=== PATIENT | male | born 1965 | race Caucasian/White ===

== ENCOUNTER 2018-04-02 01:53 | Inpatient (IN) | payer OTHER ==
[~2018-04-02] VITALS: Ht 193 cm; Wt 141.2 kg
[2018-04-02] VITALS (8 sets, daily range): BP systolic 108–132; BP diastolic 64–87; PULSE 63–78; TEMP 36.3–36.8; O2SAT 94–97; Ht 193 cm; Wt 141.2 kg
[2018-04-02] MEDS ORDERED: NITROGLYCERIN 2% OINTMENT 30GM TUBE EXT ONE (02:15)
--- NOTE | 2018-04-02 02:26 | EMERGENCY ROOM VISIT NOTE ---
History Report prepared by Kedar: Edi Lainez Under the Supervision of: Dr. Anna Marie Joel D.O. First contact with patient: 01:54 Chief Complaint: CHEST PAIN Stated Complaint: CHEST PAIN History of Present Illness The patient is a 52 year old female who presents to the Emergency Room with complaints of waxing and waning chest tightness beginning this evening around 1130PM. He currently rates his discomfort a 2/10 in severity. The patient states he was doing a fair amount of lifting, walking, and physical labor when his symptoms began. He reports he was driving and had to lung puller because his symptoms were worsening and call an ambulance. The patient notes his symptoms were better while he waited, but there was still some heaviness and tightness. He states his symptoms worsened again in the ambulance. The patient reports he was given two nitroglycerin and 4 baby aspirin in route, and his discomfort decreased to a 2/10. He notes his symptoms also radiated to his shoulder in the ambulance. The patient states he had an episode of sudden nausea, sweating, and shortness of breath in the ambulance as well. He reports he had similar chest discomfort last week and went to the ED. The patient notes he had an EKG, CT, and x-ray that were all normal. He states he has a stress test scheduled. He notes he has had pain with breathing for the past three months. The patient denies having a heart catheterization. He reports a severe family history of cardiac disease in the 40s. The patient notes his last cardiac stress test was 5 years ago. He states he takes Lisinopril for hypertension. The patient reports he has gained 45lbs since May. He also notes a history of sleep apnea and hypertriglyceridemia. He denies a cough. Source of History: patient Onset: this evening around 1130PM Position: chest Symptom Intensity: 2/10 Quality: other (tightness) Timing: waxes/wanes Modifying Factors (Relieving): other (nitroglycerin and aspirin) Associated Symptoms: + SOB, + nausea, No cough Note: Associated symptoms: pain with breathing for three months, sweating, shoulder pain Review of Systems See HPI for pertinent positives & negatives. A total of 10 systems reviewed and were otherwise negative. Past Medical & Surgical Medical Problems: (1) Chest pain (2) HTN (hypertension) (3) Hypertriglyceridemia Family History FH: cardiovascular disease Social History Marital Status: Housing Status: lives with family Occupation Status: employed Current/Historical Medications Scheduled Aspirin (Aspirin Ec), 81 MG PO DAILY Beclomethasone Dip (Qvar), 2 PUFFS PO BID Fenofibrate (Tricor ), 145 MG PO DAILY Lisinopril/Hctz (Zestoretic 20MG/25MG), 1 TAB PO DAILY Trrwv-7-Ypoy Ethyl Esters (Nesbit-3), 1,000 MG PO BID Omeprazole (Prilosec), 40 MG PO BID Rosuvastatin Calcium (Crestor), 20 MG PO DAILY Allergies Coded Allergies: No Known Allergies (Unverified , 04/02/18) Physical Exam Vital Signs Date Time Temp Pulse Resp B/P (MAP) Pulse Ox O2 Delivery O2 Flow Rate FiO2 04/02/18 05:05 78 14 04/02/18 04:35 75 17 94 Room Air 04/02/18 04:33 106/66 04/02/18 04:00 71 20 106/73 94 Room Air 04/02/18 02:09 96 Room Air 04/02/18 02:04 84 04/02/18 01:59 36.8 82 18 114/80 96 Room Air 04/02/18 01:59 Room Air Physical Exam HEENT: Head - normocephalic and atraumatic Pupils are equal, round, and reactive to light. Extraocular eye muscles are intact, and sclera are anicteric. Nose - moist nasal mucosa without discharge. Mouth - moist buccal mucosa. Oropharynx is nonerythematous and there is no tonsillar exudate or edema noted. Neck: Supple; no JVD, nuchal rigidity, cervical lymphadenopathy, or auscultated bruits. Heart: Regular rate and rhythm. There is a normal S1 and S2 with no murmurs, clicks, or gallops appreciated. Lungs: Clear to auscultation bilaterally with no wheezes, rales, or rhonchi. Abdomen: Soft, completely nontender, nondistended, with good bowel sounds. There are no palpable pulsatile masses or hepatosplenomegaly. There is no guarding, rigidity, or rebound noted. Extremities: No evidence of cyanosis, clubbing, or edema. There are easily palpable peripheral pulses. Skin: warm and dry with good turgor and no rashes. Diaphoretic. Medical Decision & Procedures ER Provider Diagnostic Interpretation: Radiology results as stated below per my review: CHEST X-RAY: Narrow mediastinum, no pulmonary infiltrates or pleural effusions. Laboratory Results 04/02/18 02:35 Red Blood Count 5.07, Mean Corpuscular Volume 86.0, Mean Corpuscular Hemoglobin 29.0, Mean Corpuscular Hemoglobin Concent 33.7, Mean Platelet Volume 9.7, Neutrophils (%) (Auto) 68.8, Lymphocytes (%) (Auto) 21.6, Monocytes (%) (Auto) 8.1, Eosinophils (%) (Auto) 0.6, Basophils (%) (Auto) 0.3, Neutrophils # (Auto) 7.29, Lymphocytes # (Auto) 2.29, Monocytes # (Auto) 0.86, Eosinophils # (Auto) 0.06, Basophils # (Auto) 0.03 04/02/18 02:35 Test 04/02/18 02:35 White Blood Count 10.59 K/uL (4.8-10.8) Red Blood Count 5.07 M/uL (4.7-6.1) Hemoglobin 14.7 g/dL (14.0-18.0) Hematocrit 43.6 % (42-52) Mean Corpuscular Volume 86.0 fL (80-100) Mean Corpuscular Hemoglobin 29.0 pg (25-34) Mean Corpuscular Hemoglobin Concent 33.7 g/dl (32-36) Platelet Count 281 K/uL (130-400) Mean Platelet Volume 9.7 fL (7.4-10.4) Neutrophils (%) (Auto) 68.8 % Lymphocytes (%) (Auto) 21.6 % Monocytes (%) (Auto) 8.1 % Eosinophils (%) (Auto) 0.6 % Basophils (%) (Auto) 0.3 % Neutrophils # (Auto) 7.29 K/uL (1.4-6.5) Lymphocytes # (Auto) 2.29 K/uL (1.2-3.4) Monocytes # (Auto) 0.86 K/uL (0.11-0.59) Eosinophils # (Auto) 0.06 K/uL (0-0.5) Basophils # (Auto) 0.03 K/uL (0-0.2) RDW Standard Deviation 40.9 fL (36.4-46.3) RDW Coefficient of Variation 13.2 % (11.5-14.5) Immature Granulocyte % (Auto) 0.6 % Immature Granulocyte # (Auto) 0.06 K/uL (0.00-0.02) Prothrombin Time 11.2 SECONDS (9.0-12.0) Prothromb Time International Ratio 1.1 (0.9-1.1) Anion Gap 10.0 mmol/L (3-11) Est Creatinine Clear Calc Drug Dose 86.3 ml/min Estimated GFR () 64.3 Estimated GFR (Non- 55.5 BUN/Creatinine Ratio 17.9 (10-20) Calcium Level 9.1 mg/dl (8.5-10.1) Magnesium Level 1.8 mg/dl (1.8-2.4) Total Bilirubin 0.6 mg/dl (0.2-1) Direct Bilirubin 0.2 mg/dl (0-0.2) Aspartate Amino Transf (AST/SGOT) 50 U/L (15-37) Alanine Aminotransferase (ALT/SGPT) 103 U/L (12-78) Alkaline Phosphatase 33 U/L (45-117) Total Protein 7.4 gm/dl (6.4-8.2) Albumin 4.2 gm/dl (3.4-5.0) Triglycerides Level 177 mg/dl (0-150) Cholesterol Level 146 mg/dl (0-200) HDL Cholesterol 26 mg/dl LDL Cholesterol, Calculated 85 mg/dl VLDL Cholesterol, Calculated 35 mg/dl Cholesterol/HDL Ratio 5.6 Laboratory results per my review. Medications Administered Medications (Trade) Dose Ordered Sig/Anders Route Start Time Stop Time Status Last Admin Dose Admin Nitroglycerin (Nitroglycerin 2% Oint) 1 inch NOW ONCE EXT 04/02/18 02:15 04/02/18 02:16 DC 04/02/18 02:21 1 INCH Acetaminophen (Tylenol Tab) 650 mg Q4H PRN PO 04/02/18 05:15 05/02/18 05:14 04/02/18 06:39 650 MG Morphine Sulfate (MoRPHine SULFATE INJ) 2 mg Q30M PRN IV 04/02/18 05:15 04/16/18 05:14 04/02/18 11:50 2 MG Procedure Medications Ordered: Nitroglycerin, Fentanyl Citrate. ECG Per My Interpretation Indication: chest pain Rate (beats per minute): 83 Rhythm: normal sinus Findings: no acute ischemic change, no ectopy, other (No ST segment changes. ) ED Course 0157: Past medical records reviewed. The patient was evaluated in room C8. A complete history and physical exam was performed. The patient was observed on the salesperson yard goods and pulse oximeter. Laboratory studies were drawn as above. A 12-lead EKG was performed as described above. The patient had a portable chest x-ray. 0215: Ordered Nitroglycerin 1 inch EXT. his blood pressure remained stable with this. His chest discomfort was relieved 0421: I checked on the patient. His chest heaviness is currently rated at 3/10 in severity. 0425: Ordered Fentanyl 100 mcg IV. 0511: I discussed the case with Dr. Miriam BENÍTEZ Hospitalist. He will evaluate the patient for further treatment. Medical Decision The patient is a 52 year old male who presents to the Emergency Department with waxing/waning chest pain. Differential diagnosis includes pleurisy, costochondritis, STEMI, ACS. Laboratory results were reviewed and show; negative troponin, mildly elevated AST and ALT, BUN of 26, creatinine 1.4, glucose 100, normal coagulations, no leukocytosis, and stable hemoglobin and hematocrit. This is a 52-year-old obese male patient who presents to the emergency department with escalating symptoms of exertional shortness of breath and exertional chest discomfort that are concerning for unstable angina. EKG and cardiac enzymes are unremarkable at this time. The patient had received nitroglycerin and aspirin in the field and his discomfort was relieved temporarily. The patient is from out of town. He is scheduled for cardiac stress test at home but I am concerned for his escalating symptoms and feel he would require cardiac catheterization giving his strong family history of coronary artery disease at a young age, hypertriglyceridemia, and sleep apnea. I discussed the case with the [facility] Hospitalist and they will evaluate for further management. Medication Reconcilliation Current Medication List: was personally reviewed by me Blood Pressure Screening Patient's blood pressure: Normal blood pressure Blood pressure disposition: Did not require urgent referral Consults Time Called: [phone] Consulting Physician: Dr. Miriam BENÍTEZ [facility]. Returned Call: [phone] I discussed the case with Dr. Pasquariello - [facility] Hospitalist. He will evaluate the patient for further treatment. Impression Primary Impression: Substernal chest pain Scribe Attestation The scribe's documentation has been prepared under my direction and personally reviewed by me in its entirety. I confirm that the note above accurately reflects all work, treatment, procedures, and medical decision making performed by me. Departure Information Dispostion Being Evaluated By Hospitalist Patient Instructions My [facility]
[2018-04-02] MEDS ORDERED: ROSU20TA PO (02:48)
[2018-04-02] MEDS ORDERED: LISI-788 PO (02:48)
[2018-04-02] MEDS ORDERED: OMEP40CA41 PO (02:48)
[2018-04-02] MEDS ORDERED: FENO145T26 PO (02:48)
[2018-04-02] MEDS ORDERED: ASPI81TA28 PO (02:48)
[2018-04-02 02:51] LABS: BASO % 0.3 %; BASO ABS # 0.03 K/uL (0-0.2); EOS % 0.6 %; EOS ABS # 0.06 K/uL (0-0.5); HEMATOCRIT 43.6 % (42-52); HEMOGLOBIN 14.7 g/dL (14.0-18.0); IG# 0.06 K/uL (0.00-0.02); LYMPH % 21.6 %; LYMPH ABS # 2.29 K/uL (1.2-3.4); MEAN CORPUSCULAR HGB CONC 33.7 g/dl (32-36); MEAN PLATELET VOLUME 9.7 fL (7.4-10.4); MONO % 8.1 %; MONO ABS # 0.86 K/uL (0.11-0.59); NEUT % 68.8 %; NEUT ABS # 7.29 K/uL (1.4-6.5); PLATELET COUNT 281 K/uL (130-400); RED CELL DISTRIBUTION WIDTH CV 13.2 % (11.5-14.5); RED CELL DISTRIBUTION WIDTH SD 40.9 fL (36.4-46.3); WHITE BLOOD COUNT 10.59 K/uL (4.8-10.8)
[2018-04-02] MEDS ORDERED: BECL80AE7 PO (02:51)
[2018-04-02] MEDS ORDERED: OMEG-112 PO (02:52)
[2018-04-02 03:00] LABS: INR 1.1 (0.9-1.1); PTT PATIENT 24.6 SECONDS (21.0-31.0)
[2018-04-02 03:15] LABS: ALBUMIN 4.2 gm/dl (3.4-5.0); ALKALINE PHOSPHATASE 33 U/L (45-117); ALT/SGPT 103 U/L (12-78); AST/SGOT 50 U/L (15-37); BLOOD UREA NITROGEN 26 mg/dl (7-18); CALCIUM 9.1 mg/dl (8.5-10.1); CARBON DIOXIDE 23 mmol/L (21-32); CREATININE 1.43 mg/dl (0.60-1.40); GLUCOSE 100 mg/dl (70-99); POTASSIUM 3.2 mmol/L (3.5-5.1); SODIUM 138 mmol/L (136-145); TOTAL PROTEIN 7.4 gm/dl (6.4-8.2)
[2018-04-02] MEDS: FENTANYL CITRATE INJ 50 MCG/1 ML 2 ML VIAL IV STA ×2 (04:25→04:34)
[2018-04-02] MEDS ORDERED: ONDANSETRON INJ 2 MG/ML 2 ML VIAL IV PRN (05:15)
[2018-04-02] MEDS ORDERED: NITROGLYCERIN 0.4 MG SL PER TAB CHARGE SL PRN (05:15)
[2018-04-02] MEDS ORDERED: ALUMINUM/MAGNESIUM/SIMETH (MAALOX MAX) 30 ML UDC PO PRN (05:15)
[2018-04-02] MEDS ORDERED: MAGNESIUM HYDROXIDE SUSP 30 ML UDC PO PRN (05:15)
[2018-04-02] MEDS ORDERED: POTASSIUM CHLORIDE 10 MEQ TABCR PO STA (05:20)
[2018-04-02] MEDS: SODIUM CHLORIDE 0.9% 1000ML 1,000 ML IV SCH ×3 (05:32→18:18)
--- NOTE | 2018-04-02 05:39 | History and Physical ---
History & Physical Date & Time of Service: Apr 02, 2018 at 05:23 Chief Complaint: Chest Pain Primary Care Physician: No Doctor, Assigned History of Present Illness Source: patient The patient is a 52 year old male with a PMH of hypertriglyceridemia, sleep apnea, and hypertension that has presented to [facility] due to chest pain. His chest pain began at approximately 1130pm. He was on his way home from the [facility] and was driving home when he had to machine assembler for puller over due to worsening symptoms of chest pain. He describes the pain as a tightness and heaviness in his chest. His pain did radiate to his left shoulder. He has associated nausea, sweating and shortness of breath. He was given two nitroglycerin and 4 baby aspirin in the ambulance. This helped to relieve his chest pain down to a 10. He notes that he has been having ongoing symptoms with intermittent chest tightness for the past 3 months that has been getting progressively worse. He had similar chest discomfort last week at which point he went to a ED and had a normal EKG, CT and CXR. He notes he has a stress test ordered as an outpatient. He reports a severe family history of cardiac disease in his 40's. He reports he has gained 45 pounds since May. Past Medical/Surgical History Medical Problems: (1) Chest pain (2) HTN (hypertension) (3) Hypertriglyceridemia Family History FH: cardiovascular disease Social History Smoking Status: Never Smoker Smokeless Tobacco Use: No Alcohol Use: none Drug Use: none Marital Status: Occupational Status: employed Immunizations History of Influenza Vaccine: Unknown History of Tetanus Vaccine?: Unknown History of Pneumococcal: Unknown History of Hepatitis B Vaccine: Unknown Allergies Coded Allergies: No Known Allergies (Unverified , 04/02/18) Home Medications Scheduled Aspirin (Aspirin Ec), 81 MG PO DAILY Beclomethasone Dip (Qvar), 2 PUFFS PO BID Fenofibrate (Tricor ), 145 MG PO DAILY Lisinopril/Hctz (Zestoretic 20MG/25MG), 1 TAB PO DAILY Jqnbs-4-Cctk Ethyl Esters (Mccoll-3), 1,000 MG PO BID Omeprazole (Prilosec), 40 MG PO BID Rosuvastatin Calcium (Crestor), 20 MG PO DAILY Review of Systems 10 systems reviewed and negative except as noted in the HPI Physical Exam Vital Signs Date Time Temp Pulse Resp B/P (MAP) Pulse Ox O2 Delivery O2 Flow Rate FiO2 04/02/18 05:05 78 14 04/02/18 04:35 75 17 94 Room Air 04/02/18 04:33 106/66 04/02/18 04:00 71 20 106/73 94 Room Air 04/02/18 02:09 96 Room Air 04/02/18 02:04 84 04/02/18 01:59 36.8 82 18 114/80 96 Room Air 04/02/18 01:59 Room Air General Appearance: WD/WN, no apparent distress, + obese Eyes: normal inspection, PERRL, EOMI ENT: hearing grossly normal, pharynx normal Neck: supple, no adenopathy, no JVD, no carotid bruits, trachea midline Respiratory/Chest: lungs clear, no respiratory distress, no accessory muscle use Cardiovascular: regular rate, rhythm, no edema, no murmur, normal peripheral pulses Abdomen/GI: normal bowel sounds, non tender, soft Extremities/Musculoskelatal: normal inspection, no calf tenderness, no pedal edema, non-tender Neurologic/Psych: alert, normal mood/affect, oriented x 3 Skin: normal color, warm/dry, no rash Diagnostics Laboratory Results Results Past 24 Hours Test 04/02/18 02:35 04/02/18 05:18 04/02/18 05:21 Range/Units White Blood Count 10.59 4.8-10.8 K/uL Red Blood Count 5.07 4.7-6.1 M/uL Hemoglobin 14.7 14.0-18.0 g/dL Hematocrit 43.6 42-52 % Mean Corpuscular Volume 86.0 80-100 fL Mean Corpuscular Hemoglobin 29.0 25-34 pg Mean Corpuscular Hemoglobin Concent 33.7 32-36 g/dl Platelet Count 281 130-400 K/uL Mean Platelet Volume 9.7 7.4-10.4 fL Neutrophils (%) (Auto) 68.8 % Lymphocytes (%) (Auto) 21.6 % Monocytes (%) (Auto) 8.1 % Eosinophils (%) (Auto) 0.6 % Basophils (%) (Auto) 0.3 % Neutrophils # (Auto) 7.29 1.4-6.5 K/uL Lymphocytes # (Auto) 2.29 1.2-3.4 K/uL Monocytes # (Auto) 0.86 0.11-0.59 K/uL Eosinophils # (Auto) 0.06 0-0.5 K/uL Basophils # (Auto) 0.03 0-0.2 K/uL RDW Standard Deviation 40.9 36.4-46.3 fL RDW Coefficient of Variation 13.2 11.5-14.5 % Immature Granulocyte % (Auto) 0.6 % Immature Granulocyte # (Auto) 0.06 0.00-0.02 K/uL Prothrombin Time 11.2 9.0-12.0 SECONDS Prothromb Time International Ratio 1.1 0.9-1.1 Activated Partial Thromboplast Time 24.6 21.0-31.0 SECONDS Partial Thromboplastin Ratio 0.9 Sodium Level 138 136-145 mmol/L Potassium Level 3.2 3.5-5.1 mmol/L Chloride Level 105 98-107 mmol/L Carbon Dioxide Level 23 21-32 mmol/L Anion Gap 10.0 3-11 mmol/L Blood Urea Nitrogen 26 7-18 mg/dl Creatinine 1.43 0.60-1.40 mg/dl Est Creatinine Clear Calc Drug Dose 86.3 ml/min Estimated GFR () 64.3 Estimated GFR (Non- 55.5 BUN/Creatinine Ratio 17.9 10-20 Random Glucose 100 70-99 mg/dl Calcium Level 9.1 8.5-10.1 mg/dl Total Bilirubin 0.6 0.2-1 mg/dl Direct Bilirubin 0.2 0-0.2 mg/dl Aspartate Amino Transf (AST/SGOT) 50 15-37 U/L Alanine Aminotransferase (ALT/SGPT) 103 12-78 U/L Alkaline Phosphatase 33 45-117 U/L Troponin I < 0.015 0-0.045 ng/ml Total Protein 7.4 6.4-8.2 gm/dl Albumin 4.2 3.4-5.0 gm/dl EKG Normal sinus rhythm w/ left axis deviation Impression Assessment and Plan The patient is a 52 year old male with a PMH of hypertriglyceridemia, sleep apnea, and hypertension that has presented to [facility] due to chest pain. Patient with a very significant family history of cardiac disease. Will need cardiology input to decide if patient needs cath today versus get cath closer to home in [place]. Unstable angina - trend troponins - order echo - order lipids, HbA1c - admit to telemetry - 81mg of aspirin daily - cardiology consult DANDY secondary to dehydration - NS at 150 mls/hr - monitor I/O's Hypokalemia - replete with 40meq of oral potassium - EKG w/ chest pain HTN - blood pressure well controlled currently - hold HCTZ/lisinopril Elevated liver enzymes - likely secondary to fatty liver disease - will need outpatient US Hypertriglyceridemia - hold fenofibrate and statin DVT - scd's Full Code Attending addendum: I have physically seen this patient, have supervised the medical residents activities, and agree with the H&P unless as otherwise noted. Assessment and Plan: Unstable angina/hypertension/very strong family history of premature coronary disease-- The patient will be admitted to telemetry for serial cardiac enzymes, serial EKG's, cardiac rhythm monitoring and a 2-D echocardiogram with Dopplers. Continue aspirin 81 mg daily. Hypokalemia with potassium of 3.2 likely secondary to HCTZ, which will be held along with lisinopril due to systolic blood pressure 104. Consult cardiology to assess for need for cardiac catheterization here or closer to home near [place]. If patient develops recurrent symptoms, will start heparin drip at that time. Hypokalemia/DANDY-- Likely secondary to HCTZ/lisinopril, which will be held. Give potassium chloride 40 mEq p.o. now. Rehydrate with normal saline 100 mils per hour, and repeat laboratories in the a.m. Hyperlipidemia-- Continue fenofibrate 145 mg p.o. daily and rosuvastatin 20 mg p.o. daily. GERD-- Change omeprazole 40 mg p.o. twice daily to pantoprazole 40 mg p.o. twice daily. Advanced Directives Existing Advance Directive: No Existing Living Will: No Existing Power of Gm Video: No Resuscitation Status VTE Prophylaxis Will order VTE Prophylaxis: Yes Social Service Consult None Apply
[2018-04-02] MEDS ORDERED: IV FLUIDS COMPLETED PRN (05:45)
--- NOTE | 2018-04-02 06:30 | DIAGNOSTIC IMAGING REPORT ---
CHEST ONE VIEW PORTABLE HISTORY: 52 years-old Male cp acute atypical chest pain COMPARISON: None available TECHNIQUE: Portable AP view of the chest FINDINGS: Cardiac silhouette is normal in size. Mild to moderate right hemidiaphragmatic elevation. Subsegmental right perihilar and bibasilar opacities without pneumothorax, pleural effusion or overt pulmonary edema. Bones of the chest appear grossly intact. IMPRESSION: 1. No acute process. 2. Right hemidiaphragmatic elevation with right perihilar and bibasilar subsegmental atelectasis. The above report was generated using voice recognition software. It may contain grammatical, syntax or spelling errors. Electronically signed by: Jerson Mcrae M.D. 04/02/2018 6:28 AM Dictated Date/Time: 04/02/2018 6:26 AM
[2018-04-02] MEDS: ACETAMINOPHEN 325 MG TAB PO PRN (06:39)
[2018-04-02] MEDS ORDERED: PERFLUTREN LIPID MICROSPHERE (DEFINITY) IV ONE (08:48)
[2018-04-02] MEDS: MoRPHine SULFATE 2 MG/ML CARP IV PRN ×2 (08:53→11:50)
--- NOTE | 2018-04-02 10:01 | ECHOCARDIOGRAM REPORT ---
*NOTICE TO RECEIVING [employer] This information is strictly Confidential and protected under [place] law. [place] law prohibits you from making any further disclosure of this information unless further disclosure is expressly permitted by the written consent of the person to whom it pertains or is authorized by law. A general authorization for the release of medical or other information is not sufficient for this purpose. Hospital accepts no responsibility if the information is made available to any other person, INCLUDING THE PATIENT. Interpretation Summary * Name: HENRIQUE MEZA Study Date: 04/02/2018 08:07 AM BP: 111/73 mmHg * Patient Location: C.2T\S\S243\S\1 HR: 63 * : 1965 (M/d/yyyy) Gender: Male Height: 70 in * Age: 52 yrs Ethnicity: CA Weight: 321 lb * Ordering Physician: Dutch Ibrahim * Referring Physician: Self, Referred * Performed By: Adalberto Nunez RDCS * * Reason For Study: Chest pain * BSA: 2.6 m2 * -- Conclusions -- * The left ventricle is normal in size. * There is mild concentric left ventricular hypertrophy. * Left ventricular systolic function is normal. * Ejection Fraction = 55-60%. * I can not exclude mild septal flattening in systole. * Dilated RV (5.4 cm apical 4chamber) * Severe Hypokinesis of the RV free wall * Although TAPSE and S' are normal RV function is reduced. * The tricuspid valve is not well visualized, but is grossly normal. * Can not assess PA Pressures * IVC not seen * Normal LA Pressures. Procedure Details * A complete two-dimensional transthoracic echocardiogram was performed (2D, M-mode, Doppler and color flow Doppler). * The study was technically difficult, but visualization was adequate with the administration of Definity ultrasound contrast. * A contrast injection of Definity was performed to improve assessment of LV function. * Contrast was injected into an intravenous site in the left arm. * One vial of Definity ultrasound contrast was diluted in normal saline to a total volume of 10 ml. A total of '3' ml of solution was administered during imaging. * Lot # [id number] of Definity utilized for procedure. * Expiration date . * The attending nurse who injected the contrast agent was Debi Calderon RN. Left Ventricle * The left ventricle is normal in size. * There is mild concentric left ventricular hypertrophy. * Left ventricular systolic function is normal. * Ejection Fraction = 55-60%. * I can not exclude mild septal flattening in systole. Right Ventricle * Dilated RV (5.4 cm apical 4chamber) Severe Hypokinesis of the RV free wall Although TAPSE and S' are normal RV function is reduced. Atria * The left atrial size is normal. * Borderline right atrial enlargement. Mitral Valve * The mitral valve is grossly normal. * There is no mitral regurgitation noted. Tricuspid Valve * The tricuspid valve is not well visualized, but is grossly normal. * There is trace tricuspid regurgitation. * Can not assess PA Pressures Aortic Valve * The aortic valve is trileaflet. * No aortic regurgitation is present. Pulmonic Valve * The pulmonic valve is not well seen, but is grossly normal. Great Vessels * The aortic root is normal size. Pericardium/Pleural * There is no pericardial effusion. Great Vessels * IVC not seen Left Ventricular Diastolic Function * Normal LA Pressures. MMode 2D Measurements and Calculations IVSd 1.3 cm IVSs 1.9 cm LVIDd 4.6 cm LVIDs 3.2 cm LVPWd 1.3 cm LVPWs 1.8 cm IVS/LVPW 1.0 FS 31.5 % EDV(Teich) 99.3 ml ESV(Teich) 40.2 ml EF(Teich) 59.5 % EDV(cubed) 99.9 ml ESV(cubed) 32.0 ml EF(cubed) 67.9 % % IVS thick 39.7 % % LVPW thick 35.7 % LV mass(C)d 237.9 grams LV mass(C)dI 93.2 grams/m\S\2 LV mass(C)s 236.1 grams LV mass(C)sI 92.5 grams/m\S\2 SV(Teich) 59.1 ml SI(Teich) 23.2 ml/m\S\2 SV(cubed) 67.8 ml SI(cubed) 26.6 ml/m\S\2 EPSS 0.59 cm Ao root diam 3.6 cm Ao root area 10.0 cm\S\2 ACS 2.3 cm LA dimension 4.3 cm asc Aorta Diam 3.5 cm LA/Ao 1.2 LVOT diam 2.2 cm LVOT area 3.8 cm\S\2 LVAd ap4 35.5 cm\S\2 LVLd ap4 9.6 cm EDV(MOD-sp4) 106.7 ml EDV(sp4-el) 111.3 ml LVAs ap4 18.7 cm\S\2 LVLs ap4 7.7 cm ESV(MOD-sp4) 35.5 ml ESV(sp4-el) 38.5 ml EF(MOD-sp4) 66.7 % EF(sp4-el) 65.4 % LVAd ap2 33.2 cm\S\2 LVLd ap2 9.1 cm EDV(MOD-sp2) 98.2 ml EDV(sp2-el) 103.2 ml LVAs ap2 18.7 cm\S\2 LVLs ap2 7.7 cm ESV(MOD-sp2) 36.7 ml ESV(sp2-el) 38.5 ml EF(MOD-sp2) 62.7 % EF(sp2-el) 62.7 % LVLd %diff -5.73 % EDV(MOD-bp) 102.3 ml LVLs %diff 0.59 % ESV(MOD-bp) 36.0 ml EF(MOD-bp) 64.8 % SV(MOD-sp4) 71.1 ml SI(MOD-sp4) 27.9 ml/m\S\2 SV(MOD-sp2) 61.6 ml SI(MOD-sp2) 24.1 ml/m\S\2 SV(MOD-bp) 66.3 ml SI(MOD-bp) 26.0 ml/m\S\2 SV(sp4-el) 72.8 ml SI(sp4-el) 28.5 ml/m\S\2 SV(sp2-el) 64.7 ml SI(sp2-el) 25.4 ml/m\S\2 Doppler Measurements and Calculations MV E max diego 57.7 cm/sec MV A max diego 44.9 cm/sec MV E/A 1.3 MV dec time 0.20 sec Ao V2 max 102.6 cm/sec Ao max PG 4.2 mmHg Ao max PG (full) 1.5 mmHg FREDDIE(V,A) 3.1 cm\S\2 FREDDIE(V,D) 3.1 cm\S\2 LV V1 max PG 2.7 mmHg LV V1 max 82.7 cm/sec PA V2 max 124.2 cm/sec PA max PG 6.2 mmHg
--- NOTE | 2018-04-02 12:32 | Progress Note ---
Progress Note Date of Service Apr 02, 2018. Progress Note Attending follow up, patient admitted after midnight. patient still with some chest tightness today, cannot tolerate nitro due to headache, Morphine helping a little bet appreciate consultation from Dr. Marti, plan for heart catheterization tomorrow , patient agrees with plan troponin negative, LDL 85 echo with normal LV EF, RV with decreased function - Worsening chest pain, unstable angina troponin negative LV EF normal will start heparin drip, continue Crestor, aspirin, Tricor, metoprolol left heart cath tomorrow morphine PRN for pain
[2018-04-02] MEDS: HEPARIN 25,000 UNIT/500ML D5W 500 ML IV SCH (12:57)
[2018-04-02] MEDS: ASPIRIN 81 MG ECTAB PO SCH (12:59)
[2018-04-02] MEDS ORDERED: HEPARIN IV BOLUS 9,000 UNIT in SYRINGE 0 ML IV ONE (13:00)
[2018-04-02] MEDS: METOPROLOL TARTRATE 25 MG TAB PO SCH ×2 (13:00→20:25)
--- NOTE | 2018-04-02 13:13 | CARDIOLOGY CONSULTATION ---
DATE OF CONSULTATION: 04/02/2018 REQUESTING PHYSICIAN: Dr. Dutch Ibrahim. STRUCTURAL IRON WORKER: Uche Marti DO, [facility]. REASON FOR CONSULTATION: Unstable angina. Dear Dr. Ibrahim: It was pleasure to see Oleg today in consultation with regards to his progressive chest discomfort and shortness of breath. As you know, he is a pleasant 52-year-old gentleman who has noticed over the last 3 months progressive shortness of breath, chest tightness and chest pressure. He notes they went on a hike approximately 10 days ago with about 1000 foot gain over 3 miles. He was profoundly short of breath with this. 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 He had central chest tightness and pressure that radiated up into his upper chest and between his shoulder blades. He was short of breath. He was sweaty and mildly diaphoretic with it. It did not tobi. 911 was called. He was given initially 1 sublingual nitroglycerin with some improvement in his symptoms and then a second sublingual nitroglycerin. He has been received nitro paste as well as some IV morphine which has helped his discomfort. He still has discomfort, now that the morphine is wearing off in the range of 1-2/10. He has extensive family history of premature heart disease. His is with him and notes that he has had progressive symptoms. She even notes that he has had some resting anginal symptoms prior to yesterday. He was evaluated in the Emergency Room closer to home after his hike 10 days ago. He describes a CAT scan that was negative for pulmonary embolism as well as an EKG and troponins that were negative. He has severe sleep apnea, although he has been intolerant of CPAP. He actually fell asleep at a stop light this past week. He has significant daytime somnolence. He denies any bleeding, bruising, dark stools, black stools, fevers, chills, sweats, cough, productive sputum. His appetite is stable, but his weight is up 45 pounds in the last 9 months or so. He has no symptoms of esophageal reflux disease, but does have a history of Davis's esophagus. He denies any plans for upcoming surgery, colonoscopy, tooth extraction. The rest of the review of systems is otherwise negative. PAST MEDICAL HISTORY: 1. Significant family history of premature heart disease. 2. Hyperlipidemia and hypertriglyceridemia with low HDL. 3. Hypertension for approximately 2 years. 4. Severe obstructive sleep apnea with a dilated right ventricle and hypokinetic RV free wall on his echocardiogram. 5. Negative workup approximately 10 days ago with a normal EKG, CT of his chest and troponins with chest discomfort. 6. Davis's esophagus. 7. 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 8. Labrum surgery. SOCIAL HISTORY: He is . He works in [employer] and [employer]. 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 He denies any tobacco history. ALLERGIES: No known drug allergies. OUTPATIENT MEDICATIONS: Aspirin, beclomethasone, fenofibrate, lisinopril, HCTZ, omega-3, omeprazole and rosuvastatin. FAMILY HISTORY: His dad of esophageal cancer. He did have a heart attack in his early 70s. His grandfather and paternal uncles all had heart disease in their 40s. PHYSICAL EXAMINATION: GENERAL: He is awake, alert, oriented x3. He is in no acute distress. He is a well-appearing male who looks his stated age. He does appear anxious. VITAL SIGNS: His heart rate is 71, respirations 19, blood pressure 108/64, sat 96% on room air. HEENT: 2+ carotid upstrokes, no evidence of carotid bruits. Jugular venous pressure appeared normal. Sclerae is anicteric. Hearing is normal. LUNGS: Clear to auscultation bilaterally. No rales, rhonchi or wheezing. HEART: Regular rate and rhythm. No appreciable murmurs, rubs or gallops. ABDOMEN: Soft, nontender, nondistended. Positive bowel sounds. EXTREMITIES: No clubbing, cyanosis or edema. PSYCHIATRIC: He appeared anxious. NEUROLOGIC: He is awake, alert and oriented x3. IMAGING DATA: EKG: Normal sinus rhythm, incomplete right bundle-branch block, left axis deviation, ST depression in I and aVL concerning for ischemia. LABORATORY STUDIES: His CBC is normal. His BUN was 26, creatinine 1.43. Sodium 138, potassium 3.2. His AST and ALT were mildly elevated at 50 and 103. His troponins are negative. His triglycerides are 177, total cholesterol 146, LDL 85, HDL 26. Chest x-ray, no active disease. Echocardiogram: Normal LV size and function. No obvious regional wall motion abnormalities with contrast, although on the noncontrast image, the distal anterior lateral wall appeared hypokinetic, significant dilation of his right ventricle with hypokinesis of the RV free wall. PA pressures could not be assessed. IMPRESSION: 1. Unstable angina. 2. Severe obstructive sleep apnea with a dilated right ventricle and hypokinesis of the RV free wall. 3. History of marked hypertriglyceridemia, hyperlipidemia and low HDL. 4. Normal left ventricular size and function. 5. Significant family history of premature heart disease. RECOMMENDATIONS: I made the following recommendations: 1. I would recommend cardiac catheterization (right and left heart cath) to define his coronary anatomy and assess for Pulmonary HTN given his RV findings and severe sleep apnea. I discussed risks and benefits of cardiac catheterization. Risks including but not limited to bleeding or infection of the puncture site, damage to his radial or femoral artery, risk of contrast-induced nephropathy, allergic reaction to contrast and 100,000 risk of heart attack, stroke or dying with the procedure were discussed. He had contrast approximately 10 days ago without any allergic reaction. I would hold his lisinopril/hydrochlorothiazide to allow his creatinine to normalize. He should remain on IV fluids until his catheterization and should be n.p.o. after midnight. He needs a BMP in the am They are agreeable to proceed. He should be on aspirin, which I reinitiated. I would recommend a heparin drip, which I initiated. I also started metoprolol 12.5 mg b.i.d. and restarted his rosuvastatin and his Tricor. His LFT abnormalities are within an acceptable range and less than 3 times normal given the fact that he is on therapy for his lipids. If he has CAD I would increase his crestor to 40mg. Depending on the results of the catheterization, I discussed with him the options would include medical therapy versus angioplasty and stenting or his bypass surgery. In addition, I discussed with him that it would appear that not only he has sleep apnea, but he probably has obesity hypoventilation syndrome and needs to wear his CPAP and ultimately may need BiPAP. I would also recommend a right heart catheterization to make sure he does not have significant pulmonary hypertension. All this was discussed with him in detail as well as the primary service and the nursing staff. Thank you for allowing me to assist in his care. CONNOR
[2018-04-02 19:15] LABS: PTT PATIENT 56.9 SECONDS (21.0-31.0)
[2018-04-02] MEDS ORDERED: ROSUVASTATIN CALCIUM 20 MG TAB PO SCH (21:00)
[2018-04-03] VITALS (11 sets, daily range): BP systolic 116–135; BP diastolic 76–93; PULSE 62–87; TEMP 36.2–36.7; O2SAT 95–97
[2018-04-03] MEDS: HEPARIN 25,000 UNIT/500ML D5W 500 ML IV SCH (00:41)
[2018-04-03] MEDS: SODIUM CHLORIDE 0.9% 1000ML 1,000 ML IV SCH ×2 (00:41→07:51)
[2018-04-03 06:29] LABS: HEMOGLOBIN A1C 5.6 % (4.5-5.6)
[2018-04-03 07:31] LABS: PTT PATIENT 54.6 SECONDS (21.0-31.0)
[2018-04-03] MEDS: METOPROLOL TARTRATE 25 MG TAB PO SCH (07:48)
[2018-04-03] MEDS: ASPIRIN 81 MG ECTAB PO SCH (07:48)
[2018-04-03] MEDS: ACETAMINOPHEN 325 MG TAB PO PRN (07:48)
--- NOTE | 2018-04-03 08:59 | Cardiology Follow-Up ---
Subjective General Date of Service: Apr 03, 2018. Pt evaluation today including: conversation w/ patient, conversation w/ family , chart review, lab review, conversation w/ performance consultant History of Present Illness The patient is a 52 year old male Allergies Coded Allergies: No Known Allergies (Unverified , 04/02/18) Social History Smoking Status: Never Smoker Hx Tobacco Use In Past Year?: No Hx Alcohol Use - Type And Amou: No Hx Substance Use - Type And Am: No Problem List Medical Problems: (1) Substernal chest pain Status: Acute Review of Systems Respiratory: No cough, No shortness of breath, No dyspnea at rest Cardiac: No chest pain, No edema, No palpitations Additional ROS Details: CP has resolved with heparin/bb Physical Exam Vital Signs Last Vital Signs Documentation Date Time Temp Pulse Resp B/P (MAP) Pulse Ox O2 Delivery O2 Flow Rate FiO2 04/03/18 08:01 36.5 62 20 116/76 (89) 96 Room Air Physical Exam Constitutional: General Apperance: heathly-appearing Level of Distress: NAD Lungs: Respiratory effort: no dyspnea Auscultation: breath sounds normal, no wheezing, no rales/crackles, no rhonchi Cardiovascular: Heart Auscultation: RRR, no murmurs, no rubs, no gallops Abdomen: Bowel Sounds: normal Inspection & Palpation: soft, non-distended, no tenderness, guarding & rebound Extremities: no edema Assessment and Plan Assessment and Plan IMPRESSION: 1. Unstable angina. 2. Severe obstructive sleep apnea with a dilated right ventricle and hypokinesis of the RV free wall. 3. History of marked hypertriglyceridemia, hyperlipidemia and low HDL. 4. Normal left ventricular size and function. 5. Significant family history of premature heart disease. cardiac catheterization (right and left heart cath) to define his coronary anatomy and assess for Pulmonary HTN given his RV findings and severe sleep apnea this am. I discussed risks and benefits of cardiac catheterization. Risks including but not limited to bleeding or infection of the puncture site, damage to his radial or femoral artery, risk of contrast-induced nephropathy, allergic reaction to contrast and 100,000 risk of heart attack, stroke or dying with the procedure were discussed. ASA Heparin drip Metoprolol Crestor may need to increase to 40mg based on cath results Tricor No room for JULIO CÉSAR/ARB with current BP IVF NPO D/w quality lab technician Laboratory Results Last 24 Hours Test 04/02/18 10:04 04/02/18 18:33 04/03/18 00:49 04/03/18 06:50 Troponin I < 0.015 ng/ml < 0.015 ng/ml Activated Partial Thromboplast Time 56.9 SECONDS 51.0 SECONDS Partial Thromboplastin Ratio 2.2 2.0 2.1
[2018-04-03] MEDS ORDERED: FENOFIBRATE 145 MG TAB PO SCH (09:00)
--- NOTE | 2018-04-03 10:01 | Progress Note ---
Subjective Date of Service: Apr 03, 2018. Subjective 52 yo male reports feeling well today. He had some mild chest discomfort this AM, but it subsided. Patient is awaiting his cardiac cath Problem List Medical Problems: (1) Substernal chest pain Status: Acute Objective Vital Signs Date Time Temp Pulse Resp B/P (MAP) Pulse Ox O2 Delivery O2 Flow Rate FiO2 04/03/18 08:01 36.5 62 20 116/76 (89) 96 Room Air 04/03/18 03:21 36.2 67 18 117/79 (92) 97 BiPAP 04/02/18 23:32 36.8 63 17 115/78 (90) 95 CPAP 04/02/18 20:24 72 132/78 (96) 04/02/18 20:00 Room Air 04/02/18 19:05 36.4 65 18 129/87 (101) 95 Room Air 04/02/18 16:00 Room Air 04/02/18 15:09 36.4 64 18 116/72 (87) 96 Room Air 04/02/18 11:31 36.3 72 20 115/77 (90) 94 Room Air Laboratory Results Last 24 Hours Test 04/02/18 10:04 04/02/18 18:33 04/03/18 00:49 04/03/18 06:50 Troponin I < 0.015 ng/ml < 0.015 ng/ml Activated Partial Thromboplast Time 56.9 SECONDS 51.0 SECONDS 54.6 SECONDS Partial Thromboplastin Ratio 2.2 2.0 2.1 Assessment and Plan - Worsening chest pain, unstable angina troponin negative LV EF normal will start heparin drip, continue Crestor, aspirin, Tricor, metoprolol left heart cath tomorrow morphine PRN for pain Assessment and Plan: Unstable angina/hypertension/very strong family history of premature coronary disease-- The patient will be admitted to telemetry for serial cardiac enzymes, serial EKG's, cardiac rhythm monitoring and a 2-D echocardiogram with Dopplers. Continue aspirin 81 mg daily. Hypokalemia with potassium of 3.2 likely secondary to HCTZ, which will be held along with lisinopril due to systolic blood pressure 104. Consult cardiology to assess for need for cardiac catheterization here or closer to home near [place]. If patient develops recurrent symptoms, will start heparin drip at that time. Hypokalemia/DANDY-- Likely secondary to HCTZ/lisinopril, which will be held. Give potassium chloride 40 mEq p.o. now. Rehydrate with normal saline 100 mils per hour, and repeat laboratories in the a.m. Hyperlipidemia-- Continue fenofibrate 145 mg p.o. daily and rosuvastatin 20 mg p.o. daily. GERD-- Change omeprazole 40 mg p.o. twice daily to pantoprazole 40 mg p.o. twice daily
[2018-04-03] MEDS ORDERED: NiCARDipine HCL INJ 2.5 MG/ML 10 ML AMP ONE (10:31)
[2018-04-03] MEDS ORDERED: MIDAZOLAM HCL 1 MG/ML 2ML VIAL ONE (10:31)
[2018-04-03] MEDS ORDERED: HEPARIN SOD (PORCINE) 1000 UNIT/ML 10 ML VIAL ONE (10:31)
[2018-04-03] MEDS ORDERED: NITROGLYCERIN/D5W 100MCG/ML 20ML SYR ONE (10:31)
[2018-04-03] MEDS ORDERED: FENTANYL CITRATE INJ 50 MCG/1 ML 2 ML VIAL ONE (10:31)
--- NOTE | 2018-04-03 11:05 | Pre Sedation Assessment ---
Pre Sedation Assessment General Date of Sedation: Apr 03, 2018. Vital Signs Past 12 Hours Date Time Temp Pulse Resp B/P (MAP) Pulse Ox O2 Delivery O2 Flow Rate FiO2 04/03/18 08:01 36.5 62 20 116/76 (89) 96 Room Air 04/03/18 03:21 36.2 67 18 117/79 (92) 97 BiPAP 04/02/18 23:32 36.8 63 17 115/78 (90) 95 CPAP Review Cardiovascular: regular rate, rhythm, no edema Lungs: chest non-tender, lungs clear Pre-Sedation Airway Assessment Smoking Status: Never Smoker Hx of Sleep Apnea: Yes Hx of difficult intubation: No Short Thick Neck: No Thyro-mental Distance: > 3 Finger Breadths Oral Cavity: WNL Mallampati Classification: Class III ASA Classification: Class III NPO Status Date of Last Intake of Fluids: Apr 02, 2018 Time of Last Intake of Fluids: 2200 Date of Last Intake of Solids: Apr 02, 2018 Time of Last Intake of Solids: 2000 Procedure Planning Contraindications for Sedation: None Current Medications Reviewed: Yes Notes The planned sedation has been discussed with the patient. Informed Consent was obtained. I have identified the patient, determined the appropriateness of sedation and have assessed the patient immediately prior to the procedure. All medicine(s) and interventions are by my order.
--- NOTE | 2018-04-03 11:54 | Post Sedation Assessment ---
Post Sedation Assessment General Date of Sedation Apr 03, 2018. Vital Signs: Vital Signs Past 12 Hours Date Time Temp Pulse Resp B/P (MAP) Pulse Ox O2 Delivery O2 Flow Rate FiO2 04/03/18 08:01 36.5 62 20 116/76 (89) 96 Room Air 04/03/18 03:21 36.2 67 18 117/79 (92) 97 BiPAP 04/02/18 23:32 36.8 63 17 115/78 (90) 95 CPAP Post Procedure Recovery Score Activity: (2) Moves 4 extremities * Respiration: (2) Deep breath/cough Circulation: (2) +/-20% PreAnes Value Consciousness: (2) Fully Awake Oxygen Saturation: (1) O2 needed for >90% Discharge Sedation Level of Care: Fast Track Phase II Post Sedation Plan On clinical assessment, the patient appears to have tolerated the sedation without complications. Patient is recovering as anticipated. Patient will continue to be monitored by nursing and may be discharged when sedation discharge criteria are met per below protocol. Upon Completions of procedure and additional 15 minutes continue every 5 minute vital signs and the P.A.R. score; then discharge to a Phase I or Fast Track to Phase II per the following guidelines: * Discharge Patient to appropriate Phase II area if PAR is 8 or greater or return to pre- procedure baseline. The post - procedure orders will be as directed. * If PAR score is less than 8 or not return to pre-procedure baseline then patient will follow Phase I monitoring till PAR is reached for Phase II. The Phase I may be done in procedure room or may call to secure a Phase I area. * If naloxone or flumazenil are used for reversal, hold in Phase I for an additional 60 -120 minutes before discharge to Phase II. Please call the Sedation Physician to re-evaluate and complete post-note for discharge to Phase II area. Do NOT discharge from procedure sedation or Phase 1 until post- sedation evaluation note is complete by procedure /sedation MD Sedation Discharge Instructions to be given to the patient at discharge to home.
--- NOTE | 2018-04-03 12:13 | Cardiac Catheterization ---
Procedure Note Procedure Date Apr 03, 2018. Pre-Procedure Diagnosis Angina AUC Score 7 Post-Procedure Diagnosis Moderate CAD, Elevated Intracardiac Pressures Procedure(s) Performed Coronary Angiography, Left Heart Cath, Right Heart Cath Manager [employer] Producer(s) [place] Estimated Blood Loss 15 Medication(s) Fentanyl, Heparin, Nicardipine, Versed, Lidocaine 1% Summary of Findings Indication: Unstable angina/RV Failure Access: 6Fr slender right radial artery; 6Fr slender right antecubital vein Catheters: 6Fr swan; [place] Findings: LM - Angiographically normal LAD - Minimal proximal disease; Mid to distal vessel is small after take-off large 1st diagonal. Mid LAD with diffuse 50-60% disease prior to distal vessel which tapers prior to apex. - Large 1st diagonal without significant disease. Circumflex - Small vessel without significant disease. RCA - Large dominant vessel, angiographically normal. RA 16 RV 39/19 PA 34/18 (27) PAWP 18 LV 18 PaSat 66% AoSat 91% [place] CO/CI 6.7/2.5 Thermo CO/CI 8.9/3.3 TPG 9 PVR < 2 Arterial Closure: TR Band Summary: 1. Small moderate to distal LAD with moderate diffuse mid segment disease (50-60 %). 2. Mildly elevated left sided filling pressures (LVEDP 18). 3. Elevated right sided filling pressures (RA 16). 4. Normal cardiac output. 5. Mild pulmonary hypertension (post-capillary; mean PAP 27). Recommendations: Maximize antianginal therapy for small vessel LAD disease (vessel too small for intervention). Continued ASCVD risk factor modification Diuresis for elevated filling pressures. Hemodynamics Rest Ao: 116/76/96 Final Ao: 116/98 LV: 121/18 Recommendations Medical therapy and/or Counseling Specimens None Radiation Exposure (mGy) 2045 Contrast (mls) 65 Fluids (cc crystalloids) 86 Drains none Anesthesia moderate Procedural Complication(s) None Disposition PCU ACC Data Cardiac Status Clinical evaluation leading to the procedure CAD Presntation: Unstable angina Anginal Classification: CCS IV Heart Failure: No, NYHA Class: CCS I Cardiogenic Shock w/in 24Hrs: No Cardiac Arrest w/in 24Hrs: No Imaging studies past 6 months: Yes Stress studies past 6 months: No Closure Device Percutaneous Entry Location: Radial Closure Device: Radial Band Recommendations: Medical therapy and/or Counseling Intraprocedure Events Significant Dissection: No Perforation: No
[2018-04-03] MEDS ORDERED: HYDR12.56 PO (17:15)
[2018-04-03] MEDS ORDERED: METO25TA4 PO (17:15)
[2018-04-03] MEDS ORDERED: NTRSLP4 SL (17:15)
--- NOTE | 2018-04-03 17:17 | Discharge Instructions ---
Discharge Instructions Date of Service Apr 03, 2018. Admission Reason for Admission: Chest Pain Discharge Discharge Diagnosis / Problem: Chest Pain/ Discharge Goals Goal(s): Decrease discomfort, Improve function Activity Recommendations Activity Limitations: resume your previous activity . Instructions / Follow-Up Instructions / Follow-Up Followup with Control Clerk in 1 week to 2 weeks. F/U with PCP in 1-2 weeks Do not combine nitroglycerin with any erectile dysfunction meds. Stopped lisinopril and HCTZ. Will place patient on HCTZ alone. Will also start toprol XL. Current Hospital Diet Patient's current hospital diet: AHA Diet (Heart Healthy) Discharge Diet Recommended Diet: AHA Diet (Heart Healthy) Pending Studies Studies pending at discharge: no Laboratory Results Hemoglobin A1c Test 04/02/18 02:35 Range/Units Estimated Average Glucose 114 mg/dl Hemoglobin A1c 5.6 4.5-5.6 % Lipid Panel Test 04/02/18 02:35 Range/Units Triglycerides Level 177 H 0-150 mg/dl Cholesterol Level 146 0-200 mg/dl HDL Cholesterol 26 mg/dl Cholesterol/HDL Ratio 5.6 LDL Cholesterol, Calculated 85 mg/dl Medical Emergencies . Who to Call and When: Medical Emergencies: If at any time you feel your situation is an emergency, please call 911 immediately. . Non-Emergent Contact Non-Emergency issues call your: Primary Care Provider Call Non-Emergent contact if: you have any medication questions . . "Provider Documentation" section prepared by Srinivasan Grewal. .
--- NOTE | 2018-04-06 21:32 | Discharge Summary ---
Discharge Summary Date of Service Apr 03, 2018. Discharge Summary Admission Date: Apr 03, 2018 at 09:51 Discharge Date: Apr 03, 2018 Discharge Disposition: Home Principal Diagnosis: Chest pain Immunizations: Have You Had Influenza Vaccine: Unknown History of Tetanus Vaccine?: Unknown History of Pneumococcal: Unknown History of Hepatitis B Vaccine: Unknown Procedures: Cardiac cath Consultations: Cardiology Medication Reconciliation New Medications: Hydrochlorothiazide (Hctz) 12.5 Mg Cap 1 CAP PO DAILY for 30 Days, #30 CAP 5 Refills Metoprolol Succinate (Toprol Xl) 25 Mg Tabcr 1 TAB PO DAILY for 30 Days, #30 TAB 5 Refills Nitroglycerin (Nitrostat) 0.4 Mg/1 Tab Subl 0.4 MG SL UD PRN for Chest Pain for 30 Days, #12 TAB 0.4 mg every 5 minutes up to 3 doses. Continued Medications: Aspirin (Aspirin Ec) 81 Mg Tab 81 MG PO DAILY Beclomethasone Dip (Qvar) 80 Mcg/Act Aer 2 PUFFS PO BID Fenofibrate (Tricor ) 145 Mg Tab 145 MG PO DAILY, TAB [id number] Ethyl Esters ([place]-3) 1 Cap Cap 1000 MG PO BID, CAP Omeprazole (Prilosec) 40 Mg Cap 40 MG PO BID, CAP Rosuvastatin Calcium (Crestor) 20 Mg Tab 20 MG PO DAILY, TAB Discontinued Medications: Lisinopril/Hctz (Zestoretic 20MG/25MG) Tab 1 TAB PO DAILY, TAB Discharge Exam Physical Exam: General Appearance: WD/WN, no apparent distress, + obese Eyes: normal inspection, PERRL, EOMI ENT: hearing grossly normal, pharynx normal Neck: supple, no adenopathy, no JVD, no carotid bruits, trachea midline Respiratory/Chest: lungs clear, no respiratory distress, no accessory muscle use Cardiovascular: regular rate, rhythm, no edema, no murmur, normal peripheral pulses Abdomen/GI: normal bowel sounds, non tender, soft Extremities/Musculoskelatal: normal inspection, no calf tenderness, no pedal edema, non-tender Neurologic/Psych: alert, normal mood/affect, oriented x 3 Skin: normal color, warm/dry, no rash Review of Systems: Constitutional: No fever Eyes: No worsening of vision ENT: No hearing loss Respiratory: No cough Cardiovascular: No orthopnea Abdomen: No pain Musculoskeletal: No joint pain Genitourinary - Male: No hematuria Neurologic: No memory loss Psychiatric: No depression symptoms Endocrine: No fatigue Hematologic / Lymphatic: No abnormal bleeding/bruising Integumentary: No rash Hospital Course - Worsening chest pain, unstable angina troponin negative LV EF normal will start heparin drip, continue Crestor, aspirin, Tricor, metoprolol left heart cath completed morphine PRN for pain Assessment and Plan: Unstable angina/hypertension/very strong family history of premature coronary disease-- The patient will be admitted to telemetry for serial cardiac enzymes, serial EKG's, cardiac rhythm monitoring and a 2-D echocardiogram with Dopplers. Continue aspirin 81 mg daily. Hypokalemia with potassium of 3.2 likely secondary to HCTZ, which will be held along with lisinopril due to systolic blood pressure 104. Cardiac cath showed the following: Summary: 1. Small moderate to distal LAD with moderate diffuse mid segment disease (50-60 %). 2. Mildly elevated left sided filling pressures (LVEDP 18). 3. Elevated right sided filling pressures (RA 16). 4. Normal cardiac output. 5. Mild pulmonary hypertension (post-capillary; mean PAP 27). Recommendations: Maximize antianginal therapy for small vessel LAD disease (vessel too small for intervention). Continued ASCVD risk factor modification Diuresis for elevated filling pressures. Ok to discharge patient on toprol XL and HCTZ after discussing case with Dr. Marti Hypokalemia/DANDY-- Likely secondary to HCTZ/lisinopril, which will be held. Give potassium chloride 40 mEq p.o.on day of admission Rehydrate with normal saline 100 mils per hour, and repeat laboratories were improved.. Hyperlipidemia-- Continue fenofibrate 145 mg p.o. daily and rosuvastatin 20 mg p.o. daily. GERD-- Change omeprazole 40 mg p.o. twice daily to pantoprazole 40 mg p.o. twice daily Total Time Spent: Greater than 30 minutes This includes examination of the patient, discharge planning, medication reconciliation, and communication with other providers. Discharge Instructions Please refer to the electronic Patient Visit Report (Discharge Instructions) for additional information. Follow-Up as noted in discharge instruction
== END 2018-04-03 18:10 | disposition home or self-care (01) | DRG 287 ==
LOC: EDSEX 01:55 → C.EDC 01:55 → C.2T 05:18 → ENRESERV 05:51 → C.2T 18:14 → OBSVTOIN 04-03 09:51
PROVIDERS: ADMIT Hospitalist; ATTEND Internal Medicine Sports Medicine
PROC: 4A023N7 Measurement of Cardiac Sampling and Pressure, Left Heart, Percutaneous Approach (ICD-10-PCS; principal; 2018-04-03 10:43)
PROC: 4A023N6 Measurement of Cardiac Sampling and Pressure, Right Heart, Percutaneous Approach (ICD-10-PCS; principal; 2018-04-03 10:43)
PROC: B2100ZZ Fluoroscopy of Single Coronary Artery using High Osmolar Contrast (ICD-10-PCS; principal; 2018-04-03 10:43)
DX: I20.0 Unstable angina (principal); N17.9 Acute kidney failure, unspecified; I25.10 Atherosclerotic heart disease of native coronary artery without angina pectoris; Z79.82 Long term (current) use of aspirin; I10 Essential (primary) hypertension; Z82.49 Family history of ischemic heart disease and other diseases of the circulatory system; E87.6 Hypokalemia; E78.5 Hyperlipidemia, unspecified; K21.9 Gastro-esophageal reflux disease without esophagitis